=== PATIENT | female | born 1965 | race Caucasian/White ===

== ENCOUNTER 2016-11-09 14:27 | Outpatient (CLI) | payer OTHER ==
--- NOTE | 2016-11-09 15:18 | DIAGNOSTIC IMAGING REPORT ---
PROCEDURE: DEXA BONE DENSITY STUDY CLINICAL INDICATION: OSTEOPOROSIS COMPARISON: DEXA 01/14/2010 FINDINGS: Lumbar hardware precludes lumbar spine evaluation. LEFT HIP: Bone mineral density 0.594 g/cm2, T score -2.9 osteoporosis which represents a 3.7% decrease from the previous study LEFT Forearm/wrist: Bone mineral density 0.617 g/cm2, T score -1.2 osteopenia, which represents no change from the 2010 FRACTURE RISK CALCULATION ( when applicable): 10-year fracture risk of a major osteoporotic fracture and of a hip fracture not reported because of a prior vertebral fracture. (T score greater or equal to -1.0 to: NORMAL) (T score from -1.1 to -2.4: OSTEOPENIA) (T score ess than or equal to -2.5: OSTEOPOROSIS) IMPRESSION: 1. Osteopenia left forearm which is not changed since 2010. 2. Osteoporosis left hip with a 3.7% decrease from the previous study
== END 2016-11-09 23:00 ==
LOC: XR SRH 14:27
DX: M81.0 Age-related osteoporosis without current pathological fracture (principal); M85.80 Other specified disorders of bone density and structure, unspecified site